=== PATIENT | female | born 1975 | race Caucasian/White ===

== ENCOUNTER → 2020-11-13 09:09 | Outpatient (CLI) | payer OTHER, SELFPAY ==
--- NOTE | 2020-11-13 | PATH_ITS ---
Note [facility] Accession Number: [id number] TESTS RESULT FLAG UNITS REF RANGE LAB Clinician Provided Cytology Information No. of containers..01 Other (Miscellaneous) No. of containers..00 Previously Prepared Cytology Slide RIGHT THYROID NODULE DIAGNOSIS: RIGHT THYROID NODULE NEGATIVE FOR MALIGNANT CELLS. BETHESDA CATEGORY II. SPECIMEN CONSISTS OF BENIGN FOLLICULAR CELLS AND COLLOID, CONSISTENT WITH A BENIGN FOLLICULAR NODULE. Pathologist ICD10: 01 E04.1 Donna Kelly MD, Pathologist NPI- [id number] Jovi Chatterjee, Shipfitters Supervisor ([facility]) 01 30 CC, RED, CLEAR RECIEVED: IN CYTOLYT WITH 5 ALCOHOL FIXED AND 5 QUICK STAINED SLIDES ALSO 1 RNA VIAL WAS RECEIVED FOR FURTHER TESTING. /VDU 11/14/[address] [place] [address] FLAG LEGEND: L-Low Normal,H-High Normal,LL-Alert Low,HH-Alert High <-Panic Low,>-Panic High,A-Abnormal,AA-Critical Abnormal Performed at: 01 =Z [facility] [address], [place] [address] Curry Dugan MD, Performed at: 01 [facility] [address], [place], [place] [id number] MD Curry Dugan MD Phone: [phone]
--- NOTE | 2020-11-13 | DI.US.S_ITS ---
PROCEDURE: US FINE NEEDLE ASPIRATION INDICATIONS: BILATERAL FNA TECHNIQUE: The indications, alternatives, benefits, risks, and complications of the procedure were explained to the patient. Written informed consent was obtained and placed in the chart. The thyroid region was examined sonographically and a site was chosen for ultrasound guided percutaneous sampling. The skin was prepared and draped in the usual fashion, and anesthetized with 1% lidocaine infiltrated from the skin down to the thyroid gland. Multiple passes were then performed, with contents emptied into an appropriate pathology specimen container. A bandage was applied to the area of access at completion of the study. COMPARISON: Outside Film, US, US SOFT TISSUE HEAD OR NECK, 10/12/2020, 13:19. FINDINGS: Location(s) of lesion(s) sampled: Large right thyroid mass [place]: 25 gauge hypodermic needles. Number of passes: 6 Medications: 1% lidocaine for local anaesthesia. Complications: None. Location(s) of lesion(s) sampled: Small mid left thyroid mass [place]: 25 gauge hypodermic needles. Number of passes: 6 Medications: 1% lidocaine for local anaesthesia. Complications: None. IMPRESSION: Successful ultrasound-guided thyroid nodule fine needle aspirations of left and right thyroid masses, with cytology results pending. Please see chart below for management recommendations based on cytology results. [place] System ReportingRecommendationsNon-diagnostic* Repeat US-guided FNA, with on-site cytology evaluation if possible. * Repeated non-diagnostic nodules without high suspicion US features: close observation vs surgical consult. * Consider surgery if nodule has high suspicion US features, grows >20% in 2 dimensions on followup, or patient has clinical risk factors for malignancy. Benign* If nodule has high suspicion US features: repeat US and FNA within 12 months. * If nodule has low to intermediate suspicion US features: repeat US at 12-24 months. If nodule grows (20% increase in at least 2 dimensions, with minimal increase of 2 mm or >50% change in volume), or development of new suspicious US features, then repeat FNA or continue followup. * If nodule has very low suspicion US features: followup US at >24 months. Atypia of undetermined significance, follicular lesion of undetermined significanceRepeat FNA, molecular testing, followup US, or surgical consult.Follicular neoplasm, suspicious for follicular neoplasmSurgical consult; also consider molecular testing. Suspicious for malignancySurgical consult.MalignantSurgical consult. Dictated by: Florian Page M.D. on 11/13/2020 at 11:11 Approved by: Florian Page M.D. on 11/13/2020 at 11:13
--- NOTE | 2020-11-13 | PATH_ITS ---
Note [facility] Accession Number: [id number] TESTS RESULT FLAG UNITS REF RANGE LAB Clinician Provided Cytology Information No. of containers..01 Other (Miscellaneous) No. of containers..00 Previously Prepared Cytology Slide LEFT THYROID NODULE DIAGNOSIS: LEFT THYROID NODULE NEGATIVE FOR MALIGNANT CELLS. BETHESDA CATEGORY II. SPECIMEN CONSISTS OF BENIGN FOLLICULAR CELLS, HEMOSIDERIN-LADEN MACROPHAGES, AND COLLOID, CONSISTENT WITH A BENIGN FOLLICULAR NODULE. Pathologist ICD10: 01 E04.1 Donna Kelly MD, Pathologist NPI- [id number] Jovi Chatterjee, [employer] Roll Coverer ([facility]) 01 30 CC, PINK, CLEAR RECIEVED: IN CYTOLYT WITH 5 ALCOHOL FIXED AND 5 QUICK STAINED SLIDES ALSO 1 RNA VIAL WAS RECEIVED FOR FURTHER TESTING. /VDU 11/14/[address] [place] [address] FLAG LEGEND: L-Low Normal,H-High Normal,LL-Alert Low,HH-Alert High <-Panic Low,>-Panic High,A-Abnormal,AA-Critical Abnormal Performed at: 01 =Z [facility] [address], [place] [address] Curry Dugan MD, Performed at: 01 [facility] [address], [place], [place] [id number] MD Curry Dugan MD Phone: [phone]
== END ==
PROVIDERS: PCP Internal Medicine; Referring Provider Otolaryngology; Visit Provider Otolaryngology
DX: E04.2 Nontoxic multinodular goiter (principal)
CPT/HCPCS: 10005; 10006

== ENCOUNTER → 2020-11-19 13:13 | Outpatient (CLI) | payer OTHER, SELFPAY ==
[2020-11-19 14:44] LABS: COVID19 -Nasal RAPID Negative (Negative)
== END ==
PROVIDERS: PCP Internal Medicine; Visit Provider Physician Assistant
DX: Z20.822 Contact with and (suspected) exposure to COVID-19 (principal)
CPT/HCPCS: 87635

== ENCOUNTER 2020-11-22 12:14 | Day surgery (SDC) | payer OTHER, SELFPAY ==
[2020-11-22] VITALS (11 sets, daily range): BP systolic 107–138; BP diastolic 56–82; PULSE 59–102; RESP 10–18; TEMP 36.2–37.5; O2SAT 98–100; BMI 20.1
[2020-11-22] MEDS: LACTATED RINGERS 1,000 ML 42 ML IV (13:33)
[2020-11-22] MEDS: ALBUTEROL/IPRATROPIUM 3 ML AMPUL INH (15:21)
--- NOTE | 2020-11-22 15:41 | PM.PREOP ---
Pre-operative Note COVID-19 COVID-19 status: Negative Interval Note History & Physical reviewed/Exam performed by Physician: Yes Changes to H&P: No
--- NOTE | 2020-11-22 15:42 | PM.OP.1 ---
Operative Date/Time/Diagnoses Date of procedure: 11/22/20 Time of procedure: 16:17 Pre-op diagnosis: Chronic throat pain, chronic tonsillitis Post-op diagnosis: same Procedure & Clinicians Procedure: Tonsillectomy Same procedure as scheduled: Yes Indications: 45-year-old female with the above diagnoses, incompletely managed with medical therapy, presents for the above procedure. Following discussion of the material risks benefits complications and alternatives, the patient elected to proceed. Surgeon: Cornell Banuelos Click Yes if Unassisted: Yes Anesthesia Type: General and Local Operative Notes Findings: Intact palate, single uvula, 2+ tonsils cryptic endophytic tonsils with significant debris, absent adenoids Closure Type: not applicable Specimen(s): none sent Estimated Blood Loss (mL): 20 Blood products transfused: none Procedure in detail: Following identification and confirmation of consent the patient was brought to the operating room suite and placed in the supine position. General endotracheal anesthesia was administered. A head wrap, shoulder roll, and mouth gag were placed and a red rubber catheter was inserted through the nostril and out the mouth to retract the soft palate. There was no significant adenoid tissue. The left tonsil was retracted medially and suction electrocautery on a setting of 30 was used to dissect the tonsil in a subcapsular plane, followed by hemostasis with the same. This process was repeated on the right side with identical findings. The tonsillar fossae were superficially infiltrated bilaterally with a 1:1 mixture of 1% lidocaine 1 100,000 epinephrine and 0.25% Marcaine 1 to 472118 epinephrine. Mouth gag and rubber catheter were removed and the patient was extubated in the operating room and taken to the recovery room in stable condition without known complication. Complications: none Post-operative Condition: stable Disposition: same day surgery Plan for aftercare: Tylenol alternating with ibuprofen every 3 hours, oxycodone for breakthrough pain. Soft diet for 2 weeks, push fluids. F/u as scheduled in 3W, call sooner with concerns.
--- NOTE | 2020-11-22 15:56 | SUR.OPER ---
Supine on padded OR bed, head on gel donut, arm padded and tucked at side, legs uncrossed, safety belt at thigh. .
[2020-11-22] MEDS: BUPIVACAINE 0.25% W/ EPI 30 ML VIAL INJ (16:00)
[2020-11-22] MEDS: LIDOCAINE 1% W/EPI 20 ML INJ (16:00)
[2020-11-22] MEDS: OXYCODONE/ACETAMINOPHEN 5/325 TABLET 1 TAB PO (17:02)
== END 2020-11-22 17:21 | disposition home or self-care (01) ==
PROVIDERS: PCP Internal Medicine; Referring Provider Internal Medicine; Visit Provider Otolaryngology
PROC: (CPT 42826; principal; 2020-11-22 13:30)
DX: J35.01 Chronic tonsillitis (principal); E04.2 Nontoxic multinodular goiter
CPT/HCPCS: 42826; J0330; J1100; J2405; J2704; J3010

== ENCOUNTER → 2023-08-17 08:09 | Outpatient (CLI) | payer OTHER, SELFPAY ==
--- NOTE | 2023-08-17 | PATH_ITS ---
Note [facility] Accession Number: [id number] TESTS RESULT FLAG UNITS REF RANGE LAB Clinician Provided Cytology Information No. of containers..01 Other (Miscellaneous) No. of containers..08 Previously Prepared Cytology Slide Source: RIGHT THYROID MID NODULE #1 DIAGNOSIS: 01 RIGHT THYROID MID NODULE #1, FINE NEEDLE ASPIRATION. NEGATIVE FOR MALIGNANT CELLS. ADEQUATE FOR EVALUATION. COLLOID AND FOLLICULAR GROUPS ARE PRESENT. BENIGN FOLLICULAR (GOITEROUS) NODULE (BETHESDA CATEGORY II), SEE COMMENT. COMMENT: MICROSCOPIC EXAMINATION REVEALS A CELLULAR ASPIRATE, COMPOSED OF ABUNDANT COLLOID AND FOLLICULAR GROUPS WITHOUT SIGNIFICANT CYTOLOGIC OR ARCHITECTURAL ATYPIA. THESE FINDINGS SUPPORT A BENIGN FOLLICULAR (GOITEROUS) NODULE. CORRELATION WITH CLINICAL AND RADIOGRAPHIC FINDINGS IS RECOMMENDED. ACCORDING TO THE BETHESDA REPORTING SYSTEM FOR THYROID CYTOPATHOLOGY, THE RISK OF MALIGNANCY IN THE CATEGORY BENIGN-CATEGORY II IS 0-3%; THEREFORE RECOMMEND CONTINUED ULTRASOUND SURVEILLANCE WITH REPEAT FNA IF THE NODULE SIGNIFICANTLY INCREASES IN SIZE. Pathologist ICD10: 01 E04.1 Signed out by: Sawyer Knox MD, Pathologist NPI- [id number] Performed by: Sawyer Dominguez, Chief [place] Division ([facility]) Gross description: 01 30 CC, RED, CLEAR RECIEVED: IN CYTOLYT WITH 9 ALCOHOL FIXED AND 9 QUICK STAINED SLIDES ALSO 1 RNA VIAL WILL ON 09-10-2023.VO /VDU 08/18/2023 0622 Local FLAG LEGEND: L-Low Normal,H-High Normal,LL-Alert Low,HH-Alert High <-Panic Low,>-Panic High,A-Abnormal,AA-Critical Abnormal Performed at: 01 =Z [facility] [address] [place] [address] [address], [place] [address] Curry Dugan MD, Performed at: 01 [facility] [address] [address], [place], [place] [id number] MD Curry Dugan MD Phone: [phone]
--- NOTE | 2023-08-17 | DI.US.S_ITS ---
PROCEDURE: US FINE NEEDLE ASPIRATION INDICATIONS: RIGHT MID THYROID NODULE #1 ASPIRATION TECHNIQUE: The indications, alternatives, benefits, risks, and complications of the procedure were explained to the patient. Written informed consent was obtained and placed in the chart. The thyroid region was examined sonographically and a site was chosen for ultrasound guided percutaneous sampling. The skin was prepared and draped in the usual fashion, and anesthetized with 1% lidocaine infiltrated from the skin down to the thyroid gland. Multiple passes were then performed, with contents emptied into an appropriate pathology specimen container. A bandage was applied to the area of access at completion of the study. COMPARISON: [facility], , US THYROID/NECK/HEAD, 03/18/2023, 11:18. [facility], , US FINE NEEDLE ASPIRATION, 11/13/2020, 9:18. FINDINGS: Location(s) of lesion(s) sampled: Right mid thyroid nodule measuring 3.3 cm. [place]: 25 gauge hypodermic needles x7. 22 gauge hypodermic needles x2. Medications: 1% lidocaine for local anaesthesia. Complications: None. IMPRESSION: Successful ultrasound-guided thyroid nodule fine needle aspiration, with cytology results pending. Please see chart below for management recommendations based on cytology results. [place] System ReportingRecommendationsNon-diagnostic* Repeat US-guided FNA, with on-site cytology evaluation if possible. * Repeated non-diagnostic nodules without high suspicion US features: close observation vs surgical consult. * Consider surgery if nodule has high suspicion US features, grows >20% in 2 dimensions on followup, or patient has clinical risk factors for malignancy. Benign* If nodule has high suspicion US features: repeat US and FNA within 12 months. * If nodule has low to intermediate suspicion US features: repeat US at 12-24 months. If nodule grows (20% increase in at least 2 dimensions, with minimal increase of 2 mm or >50% change in volume), or development of new suspicious US features, then repeat FNA or continue followup. * If nodule has very low suspicion US features: followup US at >24 months. Atypia of undetermined significance, follicular lesion of undetermined significanceRepeat FNA, molecular testing, followup US, or surgical consult.Follicular neoplasm, suspicious for follicular neoplasmSurgical consult; also consider molecular testing. Suspicious for malignancySurgical consult.MalignantSurgical consult. Dictated by: William Amaya M.D. on 08/17/2023 at 14:16 Approved by: William Amaya M.D. on 08/17/2023 at 14:19
== END ==
PROVIDERS: PCP Internal Medicine; Referring Provider Otolaryngology; Visit Provider Otolaryngology
DX: E04.1 Nontoxic single thyroid nodule (principal)
CPT/HCPCS: 10005

== ENCOUNTER → 2023-10-12 16:59 | Outpatient (CLI) | payer OTHER, SELFPAY ==
--- NOTE | 2023-10-12 | DI.MG.S_ITS ---
BILATERAL DIGITAL SCREENING MAMMOGRAM 3D/2D WITH CAD: 10/12/2023 CLINICAL: Routine screening. Family history of breast cancer. Comparison is made to exams dated: 04/30/2022 mammogram and 10/16/2020 mammogram - [facility]. Both breasts are extremely dense, which lowers the sensitivity of mammography (category d />75% glandular tissue). Current study was also evaluated with a Computer Aided Detection (CAD) system. There are benign post operative findings in the left breast. No significant masses, calcifications, or other findings are seen in either breast. There has been no significant interval change. IMPRESSION: BENIGN There is no mammographic evidence of malignancy. A 1 year screening mammogram is recommended. Based on the Tyrer Cuzick model (a risk assessment model) the patient's lifetime risk is 15.0% and her 10 year risk is 3.1%. According to the ACR, ACS, and NCCN guidelines, an annual breast MRI exam along with mammogram is recommended if the patient's lifetime risk is 20% or greater. This exam was interpreted at Station ID: [id number]. NOTE: For mammograms, a report in lay terms will be sent to the patient. Approximately 15% of breast malignancies will not be visualized mammographically. In the management of a palpable breast mass, a negative mammogram must not discourage biopsy of a clinically suspicious lesion. Electronically Signed By: William polanco/indra:10/13/2023 09:01:06 letter sent: Normal Exam ACR BI-RADS Category 2: Benign Finding(s) 3342F
== END ==
PROVIDERS: PCP Internal Medicine; Referring Provider Internal Medicine; Visit Provider Internal Medicine
DX: Z12.31 Encounter for screening mammogram for malignant neoplasm of breast (principal); Z80.3 Family history of malignant neoplasm of breast
CPT/HCPCS: 77063; 77067

== ENCOUNTER → 2025-08-23 06:47 | Outpatient (CLI) | payer OTHER, SELFPAY ==
--- NOTE | 2025-08-23 06:50 | DI.ECHO.S_ITS ---
[facility] : : [address] : : [place] : : [id number] : : Phone: [phone] Echocardiogram Report + + :Name: ROSELINE MEJIA Study Date: 08/23/2025 Height: 62 in : [facility] ReadingLocation: Weight: 110 lb : : Gender: Female BSA: 1.5 m2 : :: 1975 Age: 49 yrs BP: 124/70 mmHg: :Reason For Study: Bradycardia : :Ordering Physician: DILLON, : :ANGI Boyle Performed By: Gonzales Pennington : :Referring: ANGI CARRANZA : + + Interpretation Summary Sinus bradycardia in the 50s. The ejection fraction is estimated to be 55-60%. Normal diastolic function. The right ventricle is normal in size and function. No significant valvular abnormalities. Pulmonary artery pressures cannot be estimated because of the lack of a measurable TR jet velocity but the IVC suggests a CVP of around 3 mmHg. Procedure: A two-dimensional transthoracic echocardiogram with color flow and Doppler was performed. The study quality was technically adequate. There is no prior echocardiogram noted for this patient. The heart rate ranged between 52-68 bpm during the study. Left Ventricle: The left ventricle is normal in size and wall thickness. Left ventricular systolic function is normal. The ejection fraction is estimated to be 55-60%. There are no focal wall motion abnormalities. Normal diastolic function. Right Ventricle: The right ventricle is normal in size and function. Atria: The left atrial size is normal. Right atrial size is normal. There is no Doppler evidence for an interatrial shunt. Mitral Valve: The mitral valve is normal. There is trace mitral regurgitation. Aortic Valve: The aortic valve is grossly normal. There is no aortic valve stenosis. No aortic regurgitation is present. Tricuspid Valve: The tricuspid valve leaflets are thin and pliable. There is trace tricuspid regurgitation. Pulmonary artery pressures cannot be estimated because of the lack of a measurable TR jet velocity but the IVC suggests a CVP of around 3 mmHg. Pulmonic Valve: The pulmonic valve is not well seen, but is grossly normal. There is a trace or physiologic amount of pulmonic regurgitation. Great Vessels: The aortic root is normal size. The ascending aorta is normal in size. The aortic arch could not be visualized. The IVC is of normal diameter and collapses greater than 50% with a sniff. This suggests a low right atrial pressure of 3 mm Hg. Pericardium/ Pleura There is no pericardial effusion. MMode/2D Measurements & Calculations LVIDd: 4.6 cm LVOT diam: 2.0 cm LVIDs: 3.1 cm Ao root diam: 3.3 cm FS: 32.4 % asc Aorta Diam: 2.9 cm IVSd: 1.6 cm LVPWd: 0.74 cm LV gore. diameter/BSA (cm/m^2): 3.1 LV sys. diameter/BSA (cm/m^2): 2.1 LA A2 area: 16.4 cm2 RA long axis: 4.7 cm LA A4 area: 16.0 cm2 RA area: 12.8 cm2 LA length (vol): 5.5 cm RA vol: 29.9 ml LA vol: 40.4 ml RA : 20.2 ml/m2 LA vol index: 27.3 ml/m2 RVD1 (basal): 2.8 cm RVD2 (mid): 1.8 cm TAPSE: 2.7 cm Doppler Measurements & Calculations Ao V2 max: 155.6 cm/sec LVOT Max Porter: 106.1 cm/sec Ao V2 mean: 112.5 cm/sec LV V1 max P.5 mmHg Ao max P.7 mmHg LV V1 VTI: 23.3 cm Ao mean P.6 mmHg SAW(I,D): 2.0 cm2 Ao V2 VTI: 34.4 cm SAW(V,D): 2.0 cm2 sev ratio: 0.68 SAW indexed to BSA (cm^2/m^2): 1.4 MV E max porter: 79.9 cm/sec TR max porter: 203.5 cm/sec MV A max porter: 45.9 cm/sec TR max P.6 mmHg MV E/A: 1.7 Med Peak E' Porter: 13.0 cm/sec E/E' med: 6.2 Lat Peak E' Porter: 14.4 cm/sec E/E' lat: 5.6 E/e' average: 5.9 MV dec time: 0.23 sec SV(LVOT): 69.7 ml Reading Physician:06:24 PM
--- NOTE | 2025-08-23 17:45 | DI.NM.S_ITS ---
DATE OF SERVICE: 08/23/2025 EXERCISE TREADMILL STRESS TEST PROCEDURE: Exercise treadmill stress test without imaging. ORDERING PROVIDER: Angi Rosado M.D. INDICATIONS: The patient is a 49-year-old female with asymptomatic bradycardia. FINDINGS: 1. The patient was able to exercise for 12 minutes 50 seconds on a standard Julio Cesar protocol suggesting excellent exercise capacity with an PARK of -60%, achieving 14.8 METS. 2. She had a normal heart rate and blood pressure response to exercise with a resting heart rate of 55 bpm, increasing to a maximum of 174 bpm, (102% of her predicted maximum). 3. She had moderate exertional dyspnea but no chest discomfort or other anginal symptoms. 4. The resting ECG shows sinus bradycardia at 51-[address] segments. There are no obvious ST-segment shifts or arrhythmias with stress although considerable motion artifact limits the interpretation. Yet, the immediate recovery ECG shows normal ST segments and only rare isolated PVCs in recovery without any complex ectopy. IMPRESSION: 1. Normal exercise treadmill stress test for ischemia with normal chronotropic competency. 2. Excellent exercise capacity without angina or arrhythmias except for rare isolated PVCs in recovery. Karly Hurt - RS/elba/MERCHANDISER doc#: [id number]/job#: [id number] dd: 08/23/2025 16:36:00 dt: 08/23/2025 17:35:00 DICTATING /COPIES TO: Saji Grissom MD; Angi Rosado M.D. COPIES MNE: NICHOLAS;
== END ==
PROVIDERS: PCP Nurse Practitioner Acute Care; Referring Provider Nurse Practitioner Acute Care; Visit Provider Internal Medicine Cardiovascular Disease
DX: R00.1 Bradycardia, unspecified (principal)
CPT/HCPCS: 93017; 93306